=== PATIENT | male | born 1970 | race Caucasian/White ===

== ENCOUNTER 2022-07-06 03:55 | Observation (INO) ==
[2022-07-06] MEDS ORDERED: ONDANSETRON INJ 2 MG/ML 2 ML VIAL IV STA (03:59)
[2022-07-06] MEDS ORDERED: KETOROLAC TROMETHAMINE 15 MG/ML VIAL IV STA (03:59)
[2022-07-06] MEDS ORDERED: SODIUM CHLORIDE 0.9% 1000ML 1,000 ML IV SCH ×2 (04:00→10:02)
[2022-07-06 04:42] LABS: Hematocrit (blood only) 45.6 % (42.0-52.0); Hemoglobin 15.8 g/dl (14.0-18.0); Mean Corpuscular Hgb Conc 34.6 g/dL (32.0-36.0); Mean Corpuscular Volume 92.3 fL (80.0-100.0); Mean Platelet Volume 10.2 fL (9.4-12.4); Platelet Count 278 K/uL (130-400); RDW Coefficient of Variation 12.1 % (11.5-14.5); RDW Standard Deviation 40.9 fL (36.4-46.3); Red Blood Count 4.94 M/uL (4.70-6.10); White Blood Count 9.35 K/ul (4.8-10.8)
[2022-07-06 05:08] LABS: Albumin Globulin Ratio 1.7 (0.9-2); Albumin Level 4.3 gm/dl (3.4-5.0); BUN Creatinine Ratio 13.8 (10-20); Bilirubin,Total 0.6 mg/dl (0.2-1.0); Calcium 10.4 mg/dl (8.6-10.3); Creatinine Clr Calc Pharmacy 60.5 ml/min; Est GFR (African American) 60.2 ml/min; Est GFR (Non-African American) 51.9 ml/min; Globulin 2.5 gm/dl (2.5-4.0); Potassium 3.9 mmol/L (3.5-5.1); Total Protein 6.8 gm/dl (6.0-8.3)
--- NOTE | 2022-07-06 05:27 | CT Scan Report ---
Exam(s): CT ABDOMEN + PELVIS Without Contrast EXAM: CT Abdomen and Pelvis Without Intravenous Contrast CLINICAL HISTORY: Flank pain. TECHNIQUE: Axial computed tomography images of the abdomen and pelvis without intravenous contrast. CTDI is 17.7 mGy and DLP is 944.43 mGy-cm. Automated exposure control was utilized for the study. A dose lowering technique was utilized adhering to the principles of ALARA. COMPARISON: No relevant prior studies available. FINDINGS: Lung bases: Unremarkable. No mass. No consolidation. ABDOMEN: Liver: Unremarkable. Gallbladder and bile ducts: Unremarkable. No calcified stones. No ductal dilation. Pancreas: Unremarkable. No ductal dilation. Spleen: Unremarkable. No splenomegaly. Adrenals: Unremarkable. No mass. Kidneys and ureters: There is moderate to severe right hydroureteronephrosis. There are approximately 4 obstructing calculi in the distal right ureter with a 4 mm stone in the right UVJ. The largest distal right ureteral calculus measures 5-6 mm. The left kidney is atrophic. Stomach and bowel: Unremarkable. No obstruction. No mucosal thickening. Diverticulosis without diverticulitis. PELVIS: Appendix: No findings to suggest acute appendicitis. Bladder: Unremarkable. No stones. Reproductive: Unremarkable as visualized. ABDOMEN and PELVIS: Intraperitoneal space: Unremarkable. No free air. No significant fluid collection. Bones/joints: No acute fracture. No dislocation. Soft tissues: Unremarkable. Vasculature: Unremarkable. No abdominal aortic aneurysm. Lymph nodes: Unremarkable. No enlarged lymph nodes. IMPRESSION: There is moderate to severe right hydroureteronephrosis. There are approximately 4 obstructing calculi in the distal right ureter with a 4 mm stone in the right UVJ. The largest distal right ureteral calculus measures 5-6 mm. Electronically signed by: Ronal Sandoval MD 07/06/22 05:26 AM
[2022-07-06 05:33] LABS: ALC (manual) 4.49 K/uL (1.2-3.4); ANC (manual) 4.11 K/uL (1.4-6.5); Eosinophils # (manual) 0.28 K/uL (0-0.50); Eosinophils % (manual) 3 %; Large Granular Lymph # (manua 1.59 K/uL; Large Granular Lymph % (manual) 17 %; Lymphocytes % (manual) 31 %; Metamyelocytes # (manual) 0.09 K/uL (0-0); Metamyelocytes % (manual) 1 %; Monocytes # (manual) 0.47 K/uL (0.11-0.59); Monocytes % (manual) 5 %; Neutrophils # (manual) 4.11 K/uL (1.40-6.50); Neutrophils % (manual) 44 %; RBC Morphology Unremarkable
--- NOTE | 2022-07-06 05:45 | Urology Consultation ---
Date of Consultation July 06, 2022 Assessment & Plan (1) Kidney stones: Due to the patient's clinical presentation, findings on imaging, and the fact that he has a left atrophic kidney I discussed with the treating emergency room physician he will be admitted to the hospitalist service. We will proceed as follows: Provide IV fluid for hydration Provide analgesics Provide antiemetics Implement n.p.o. status We will attempt obtain a urine sample and if there is suspicion for infection will treat accordingly The patient does take Flomax as an outpatient we will administer dose of that now to help with expulsive therapy I suspect the patient may require cystoscopy due to his atrophic left kidney and the fact he has multiple obstructing kidney stones in the right. The patient will be evaluate by urology attending this morning and further plans will be delineated based on their assessment of the patient. Additional recommendations were forthcoming based on his clinical course as it unfolds History of Present Illness Reason for Consultation: Nephrolithiasis History of Present Illness This is a 52-year-old male who presented to the emergency department secondary to right-sided flank pain. Patient notes that the pain has been present for approximately 2 days. He notes the pain is located in the right flank with some radiation to his abdomen. He denies any nausea or vomiting. Since his pain began he has been able to urinate without dysuria or hematuria but since arrival to the emergency department he has not been able to urinate. He denies any fevers, shakes, or chills. Patient notes that he has had kidney stones in the past that required treatment most recently in October 2018. At this time the patient underwent ESWL by Dr. Jorge Gallardo. Since arrival to the hospital the patient has had labs and imaging which independent reviewed. Patient had a CT scan of the abdomen pelvis that showed moderate to severe right-sided hydronephrosis with approximately 4 obstructing kidney stones in the distal right ureter and a 4 mm stone at the right ureterovesical junction. The largest of the stones measures approximate 5 to 6 mm. The left kidney was noted to be atrophic Labs include a CBC her white blood cell count, hemoglobin, hematocrit, and platelet count were normal. Chemistry profile showed sodium, potassium, and BUN were normal. His creatinine was elevated at 5.2. Available records show that his most recent creatinine available for review was in October 2018 which was in the normal range at 1.24. Urinalysis has been unable to be obtained at this time. At the time my interview the patient was resting comfortably in bed he was in no distress. Allergies Allergy/AdvReac Type Severity Reaction Status Date / Time Dgpwxfc-NBU-MoG Reductase AdvReac Mild MUSCLE Verified 03/27/19 14:13 Inhibitor CRAMPS [Qjfzegr-Vrl-Deg Reductase Inhibitor] pollen extracts AdvReac Unknown "SEASONAL Verified 03/27/19 14:13 ALLERGIES" Home Medications Medication Instructions Recorded Confirmed Type calcium carbonate 200 mg calcium 400 mg PO AC 09/01/18 03/27/19 History (500 mg) chewable tablet (Tums) lisinopril 20 mg tablet 20 mg PO QAM 09/01/18 03/27/19 History omega 4-dup-bgi-fish oil 1,000 mg 2 cap PO BID 09/01/18 03/27/19 History (120 mg-180 mg) capsule (Fish Oil) sodium di- and 1 tab PO BID 09/01/18 03/27/19 History monophosphate-potassium phos monobasic 250 mg tablet (Phospha Neutral) oxycodone-acetaminophen 7.5 mg-325 1 tab PO Q6H PRN pain #20 tabs 09/09/18 03/27/19 Rx mg tablet (Percocet) potassium citrate 10 mEq (1,080 10 meq PO BID #60 tabs 10/21/18 03/27/19 Rx mg) tablet,extended release (Urocit-K 10) tamsulosin 0.4 mg capsule 0.4 mg PO HS #30 caps 10/21/18 03/27/19 Rx ezetimibe 10 mg tablet 10 mg PO DAILY 11/23/18 03/27/19 History magnesium oxide 400 mg PO BID 11/23/18 03/27/19 History multivitamin (Daily Multi-Vitamin 1 tab PO DAILY 11/23/18 03/27/19 History tablet) pitavastatin calcium 4 mg tablet 4 mg PO DAILY 11/23/18 03/27/19 History (Livalo) sodium di- and 1 tab PO BID 11/23/18 03/27/19 History monophosphate-potassium phos monobasic 250 mg tablet Patient History Medical History Diverticular disease GERD (gastroesophageal reflux disease) VERY RARE Hyperlipidemia Hyperlipidemia Hypertension Hypertension Kidney stones Migraine Prostate cancer screening Surgical History History of colonoscopy History of lithotripsy LASER LITHOTRIPSY X3 ESWL X1 Social History Smoking Status: Never smoker Second Hand Exposure: No; Hx Alcohol Use: Yes Alcohol type: beer, wine and hard liquor Hx Substance Use: No Preferred Language: Togolese Communication Ability: Effective Chipper Required: No Beliefs That Will Affect Care: Roman Catholic Roman Catholic Beliefs: jehovah witness - n o blood products Current Living Situation: Spouse and Family Feels Safe at Home: Yes Assistive Devices: Contacts and Glasses Review of Systems Constitutional: no fever and no chills Eyes: no eye pain Ear, Nose, Mouth, Throat: no ear pain Respiratory: no cough and no dyspnea Cardiovascular: no chest pain Gastrointestinal: + abdominal pain (Radiating from right flank); no nausea and no vomiting Genitourinary: + flank pain (Right sided); no dysuria Musculoskeletal: + back pain (Right flank) Integumentary: no rash Neurologic: no localized weakness Physical Exam Constitutional: WD/WN, vitals as above Eyes: Wears glasses ENMT: Ears: no hearing impairment and no external ear abnormality Mouth: no oropharynx abnormality Neck: trachea midline Respiratory: normal respiratory effort; no respiratory distress and no labored breathing Cardiovascular: Rate/Rhythm: regular rate and regular rhythm Gastrointestinal (Abdomen): Soft, nonrigid, nondistended, nontender to palpation Musculoskeletal: No calf tenderness Skin: no rashes Neurologic: moves all extremities Psychiatric: A+Ox3, euthymic affect Genitourinary: no CVA tenderness Results & Data Vital Signs (Past 12 Hours) Vital Signs Temp Pulse Pulse Resp BP BP Pulse Ox 07/06/22 04:52 60 18 150/91 H 98 07/06/22 03:57 36.5 C 72 16 162/97 H 99 O2 Del Method 07/06/22 04:52 Room Air 07/06/22 03:57 Room Air PG Care Time/CCT Total # of Minutes Spent Total Time Spent with Patient: Total time spent is greater than 50% in coordination of care (as documented) at patient's floor/unit and/or counseling patient: Coding Level of Care Code 82772 IN/OBS CONSULT LVL 5,80M Diagnoses Kidney stones N20.0
--- NOTE | 2022-07-06 05:51 | History & Physical Report ---
Date of Service July 06, 2022 Assessment & Plan (1) Kidney stones: Plan: 52yo male with history of CKD - single functioning kidney - presenting with right flank pain. Found with several obstructing renal calculi and hydronephrosis. Mild elevation of Cr to 1.52 from baseline of appx 1.2 Urinalysis not yet obtained -Admit to medical -Strain all urine -IVF with NSS at 100mL/hr -Flomax 0.4mg po daily -Morphine as needed for pain control -Zofran as needed for nausea -Empiric Ceftriaxone 2gm IV daily until UA results returned -Urology consultation appreciated -Patient is a Jehova's Witness - no whole blood or blood products (2) Hyperlipidemia: Plan: Chronic -Hold Livalo for now (3) Hypertension: Plan: Chronic. Mildly elevated BP in setting of acute pain -Pain control -Hold Lisinopril -Monitor BP (4) Chronic kidney disease, stage 2 (mild): Plan: Mild elevation of Cr from baseline - 1.52 from 1.2. Patient reports he has a single functioning kidney as his other was damaged by renal stones as a child. -Monitor BUN, Cr, electrolytes and UOP -Avoid nephrotoxic agents -Renal dosing where needed F/E/N -NSS at 100ml/hr, monitor electrolytes and replete as needed, NPO for now Ppx - Low risk for DVT Code - Full Dispo - Admission to medical History of Present Illness Chief Complaint: right flank pain Primary Care Provider: Henrique Camarillo Hunetr Hammer is a 52yo male with history of HTN, HLP and prior renal stones presenting with right flank pain that began yesterday morning. Also with some nausea. CT with moderate to severe right hydroureteronephrosis with approximately 4 obstructing calculi in the distal right ureter with a 4mm stone in the right UVJ. The largest distal right ureteral calculus measures 5-6mm. Patient with solitary functioning kidney. He reports that his other kidney was severely damaged by renal stones in childhood. Pain presently controlled with use of IV Toradol. In the ER he is afebrile, hypertensive otherwise HD stable. ER COurse: Zofran, Toradol, NSS Allergies Allergy/AdvReac Type Severity Reaction Status Date / Time Gkyroay-EGA-HmG Reductase AdvReac Mild MUSCLE Verified 03/27/19 14:13 Inhibitor CRAMPS [Tmobsgh-Yjd-Obx Reductase Inhibitor] pollen extracts AdvReac Unknown "SEASONAL Verified 03/27/19 14:13 ALLERGIES" Home Medications Medication Instructions Recorded Confirmed Type calcium carbonate 200 mg calcium 400 mg PO AC 09/01/18 03/27/19 History (500 mg) chewable tablet (Tums) lisinopril 20 mg tablet 20 mg PO QAM 09/01/18 03/27/19 History omega 7-kql-ymj-fish oil 1,000 mg 2 cap PO BID 09/01/18 03/27/19 History (120 mg-180 mg) capsule (Fish Oil) sodium di- and 1 tab PO BID 09/01/18 03/27/19 History monophosphate-potassium phos monobasic 250 mg tablet (Phospha Neutral) oxycodone-acetaminophen 7.5 mg-325 1 tab PO Q6H PRN pain #20 tabs 09/09/18 03/27/19 Rx mg tablet (Percocet) potassium citrate 10 mEq (1,080 10 meq PO BID #60 tabs 10/21/18 03/27/19 Rx mg) tablet,extended release (Urocit-K 10) tamsulosin 0.4 mg capsule 0.4 mg PO HS #30 caps 10/21/18 03/27/19 Rx ezetimibe 10 mg tablet 10 mg PO DAILY 11/23/18 03/27/19 History magnesium oxide 400 mg PO BID 11/23/18 03/27/19 History multivitamin (Daily Multi-Vitamin 1 tab PO DAILY 11/23/18 03/27/19 History tablet) pitavastatin calcium 4 mg tablet 4 mg PO DAILY 11/23/18 03/27/19 History (Livalo) sodium di- and 1 tab PO BID 11/23/18 03/27/19 History monophosphate-potassium phos monobasic 250 mg tablet Past Med/Surg History Medical History (Updated 07/06/22 @ 06:16 by Rosey David DO) Diverticular disease GERD (gastroesophageal reflux disease) VERY RARE Hyperlipidemia Hypertension Kidney stones Migraine Surgical History History of colonoscopy History of lithotripsy LASER LITHOTRIPSY X3 ESWL X1 Social History Smoking Status: Never smoker Second Hand Exposure: No; Hx Alcohol Use: Yes Alcohol type: beer, wine and hard liquor Hx Substance Use: No Preferred Language: Fijian Communication Ability: Effective Associate Professor Of Anthropology Required: No Beliefs That Will Affect Care: Christian Christian Beliefs: jehovah witness - no blood products Current Living Situation: Spouse and Family Feels Safe at Home: Yes Assistive Devices: Contacts and Glasses Review of Systems Review of Systems: All systems reviewed & are unremarkable except as noted in HPI & below Physical Exam Physical Exam: General: patient resting comfortably, NAD, non-toxic in appearance, AA&O x 4 Skin: warm, dry, intact, no rashes or lesions HEENT: NC/AT, PERRL, EOMI, anicteric sclera, conjunctiva without injection, external ear normal to inspection and nontender, nares patent, moist mucus membranes, dentition intact, no oropharyngeal lesions, neck supple, trachea midline, no LAD, no thyromegaly, no JVD Heart: +S1/S2, regular, no m/r/g Lungs: equal air entry bilaterally, no rales/rhonchi/wheezes Abd: +BS, soft, NT/ND, no masses/organomegaly/ascites, right flank pain Ext: warm, 2+ pulses in UE/LE bilaterally, no clubbing/cyanosis or edema Neuro: nonfocal, patient AA&O x 4, speech intact, no facial droop, moving all extremities on command with equal strength 5/5 Results & Data Results & Data Vital Signs (Past 12 Hours) Vital Signs Temp Pulse Pulse Resp BP BP Pulse Ox 07/06/22 04:52 60 18 150/91 H 98 07/06/22 03:57 36.5 C 72 16 162/97 H 99 O2 Del Method 07/06/22 04:52 Room Air 07/06/22 03:57 Room Air Laboratory Results Laboratory Results WBC 9.35 K/ul (4.8-10.8) 07/06/22 04:33 RBC 4.94 M/uL (4.70-6.10) 07/06/22 04:33 Hgb 15.8 g/dl (14.0-18.0) 07/06/22 04:33 Hct 45.6 % (42.0-52.0) 07/06/22 04:33 MCV 92.3 fL (80.0-100.0) 07/06/22 04:33 MCH 32.0 pg (25.0-34.0) 07/06/22 04:33 MCHC 34.6 g/dL (32.0-36.0) 07/06/22 04:33 RDW Std Deviation 40.9 fL (36.4-46.3) 07/06/22 04:33 RDW Coeff of Melania 12.1 % (11.5-14.5) 07/06/22 04:33 Plt Count 278 K/uL (130-400) 07/06/22 04:33 MPV 10.2 fL (9.4-12.4) 07/06/22 04:33 Neutrophils % (Manual) 44 % 07/06/22 04:33 Lymphocytes % (Manual) 31 % 07/06/22 04:33 Monocytes % (Manual) 5 % 07/06/22 04:33 Eosinophils % (Manual) 3 % 07/06/22 04:33 Metamyelocytes % (Man) 1 % 07/06/22 04:33 Neutrophils # (Manual) 4.11 K/uL (1.40-6.50) 07/06/22 04:33 Total Absolute Neuts 4.11 K/uL (1.4-6.5) 07/06/22 04:33 Lymphocytes # (Manual) 2.90 K/uL (1.2-3.4) 07/06/22 04:33 Total Abs Lymphocytes 4.49 K/uL (1.2-3.4) H 07/06/22 04:33 Monocytes # (Manual) 0.47 K/uL (0.11-0.59) 07/06/22 04:33 Eosinophils # (Manual) 0.28 K/uL (0-0.50) 07/06/22 04:33 Metamyelocytes # (Man) 0.09 K/uL (0-0) H 07/06/22 04:33 Large Granular Lymphs 17 % 07/06/22 04:33 # Lrg Granular Lymphs 1.59 K/uL 07/06/22 04:33 RBC Morphology Unremarkable 07/06/22 04:33 Sodium 140 mmol/L (136-145) 07/06/22 04:33 Potassium 3.9 mmol/L (3.5-5.1) 07/06/22 04:33 Chloride 105 mmol/L (98-107) 07/06/22 04:33 Carbon Dioxide 28 mmol/L (21-32) 07/06/22 04:33 Anion Gap 7 (3-11) 07/06/22 04:33 BUN 21 mg/dl (6-23) 07/06/22 04:33 Creatinine 1.52 mg/dl (0.6-1.4) H 07/06/22 04:33 Est Cr Clr Drug Dosing 60.5 ml/min 07/06/22 04:33 Est GFR ( Amer) 60.2 ml/min 07/06/22 04:33 Est GFR (Non-Af Amer) 51.9 ml/min 07/06/22 04:33 BUN/Creatinine Ratio 13.8 (10-20) 07/06/22 04:33 Glucose 142 mg/dl (70-99(Fasting)) H 07/06/22 04:33 Calcium 10.4 mg/dl (8.6-10.3) H 07/06/22 04:33 Total Bilirubin 0.6 mg/dl (0.2-1.0) 07/06/22 04:33 AST 18 U/L (13-39) 07/06/22 04:33 ALT 18 U/L (7-52) 07/06/22 04:33 Alkaline Phosphatase 37 U/L (34-104) 07/06/22 04:33 Total Protein 6.8 gm/dl (6.0-8.3) 07/06/22 04:33 Albumin 4.3 gm/dl (3.4-5.0) 07/06/22 04:33 Globulin 2.5 gm/dl (2.5-4.0) 07/06/22 04:33 Albumin/Globulin Ratio 1.7 (0.9-2) 07/06/22 04:33 Lipase 13 U/L (11-82) 07/06/22 04:33 Impressions Abdomen/Pelvis CT 07/06/22 03:59 Exam(s): CT ABDOMEN + PELVIS Without Contrast EXAM: CT Abdomen and Pelvis Without Intravenous Contrast CLINICAL HISTORY: Flank pain. TECHNIQUE: Axial computed tomography images of the abdomen and pelvis without intravenous contrast. CTDI is 17.7 mGy and DLP is 944.43 mGy-cm. Automated exposure control was utilized for the study. A dose lowering technique was utilized adhering to the principles of ALARA. COMPARISON: No relevant prior studies available. FINDINGS: Lung bases: Unremarkable. No mass. No consolidation. ABDOMEN: Liver: Unremarkable. Gallbladder and bile ducts: Unremarkable. No calcified stones. No ductal dilation. Pancreas: Unremarkable. No ductal dilation. Spleen: Unremarkable. No splenomegaly. Adrenals: Unremarkable. No mass. Kidneys and ureters: There is moderate to severe right hydroureteronephrosis. There are approximately 4 obstructing calculi in the distal right ureter with a 4 mm stone in the right UVJ. The largest distal right ureteral calculus measures 5-6 mm. The left kidney is atrophic. Stomach and bowel: Unremarkable. No obstruction. No mucosal thickening. Diverticulosis without diverticulitis. PELVIS: Appendix: No findings to suggest acute appendicitis. Bladder: Unremarkable. No stones. Reproductive: Unremarkable as visualized. ABDOMEN and PELVIS: Intraperitoneal space: Unremarkable. No free air. No significant fluid collection. Bones/joints: No acute fracture. No dislocation. Soft tissues: Unremarkable. Vasculature: Unremarkable. No abdominal aortic aneurysm. Lymph nodes: Unremarkable. No enlarged lymph nodes. IMPRESSION: There is moderate to severe right hydroureteronephrosis. There are approximately 4 obstructing calculi in the distal right ureter with a 4 mm stone in the right UVJ. The largest distal right ureteral calculus measures 5-6 mm. Electronically signed by: Ronal Sandoval MD 07/06/22 05:26 AM PG Care Time/CCT Total # of Minutes Spent Total Time Spent with Patient: Total time spent is greater than 50% in coordination of care (as documented) at patient's floor/unit and/or counseling patient: Coding Level of Care Code 51593 INT INP/OBS CARE 2/55MIN Diagnoses Kidney stones N20.0 Hyperlipidemia E78.5 Hypertension I10 Chronic kidney disease, stage 2 (mild) N18.2
[2022-07-06] MEDS: MoRPHine SULFATE 4 MG/ML 1 ML CARP\\VIAL IV PRN ×2 (06:19→07:47)
--- NOTE | 2022-07-06 09:17 | Urology Progress Note ---
Date of Service July 06, 2022 Assessment & Plan (1) Kidney stones: (2) Right ureteral stone: Plan Even though he has passed some stones, he is still having flank pain raising suspicion for persistent ureteral obstruction with stones. We discussed surgical intervention with cystoscopy, right retrograde pyelogram, possible right ureteroscopy, possible laser lithotripsy, right ureteral stent placement. He expressed understanding and would like to proceed with surgical intervention. Admission and Anticipated Discharge Date Admission Date: July 06, 2022 Subjective Feeling okay this morning, denies fevers or chills Still having some right-sided flank pain Passed some stones when urinating this morning Review of Systems Review of Systems: 12 point review of systems negative except for otherwise indicated. Physical Exam Constitutional: well developed and well nourished; no acute distress Eyes: + anicteric sclerae; pupils not irregular Respiratory: normal respiratory effort; no respiratory distress, does not use accessory muscles and no cough Cardiovascular: well perfused Gastrointestinal (Abdomen): Inspection/Auscultation: abdomen normal to inspection; abdomen not distended Musculoskeletal: Extremities: extremities normal to inspection Skin: normal turgor; no rashes and no lesions Neurologic: moves all extremities and awake Psychiatric: Orientation: alert and oriented x 3 Results & Data Vital Signs (Past 12 Hours) Vital Signs Temp Pulse Pulse Resp BP BP Pulse Ox 07/06/22 08:00 83 18 131/82 100 07/06/22 06:38 66 15 141/86 H 98 07/06/22 04:52 60 18 150/91 H 98 07/06/22 03:57 36.5 C 72 16 162/97 H 99 O2 Del Method 07/06/22 08:00 Room Air 07/06/22 06:38 Room Air 07/06/22 04:52 Room Air 07/06/22 03:57 Room Air PG Care Time/CCT Total # of Minutes Spent Total Time Spent with Patient: Total time spent is greater than 50% in coordination of care (as documented) at patient's floor/unit and/or counseling patient: Coding Level of Care Code None Diagnoses Kidney stones N20.0 Right ureteral stone N20.1
[2022-07-06] MEDS ORDERED: DOCUSATE SODIUM/SENNA 50/8.6MG TAB PO PRN (10:02)
[2022-07-06] MEDS ORDERED: ONDANSETRON INJ 2 MG/ML 2 ML VIAL IV PRN (10:02)
[2022-07-06] MEDS ORDERED: POLYETHYLENE (MIRALAX) 17 GM PACK PO PRN (10:02)
[2022-07-06] MEDS ORDERED: ACETAMINOPHEN 325 MG TAB PO PRN (10:02)
[2022-07-06] MEDS ORDERED: MoRPHine SULFATE 2 MG/ML CARP IV PRN (10:02)
[2022-07-06] MEDS ORDERED: MoRPHine SULFATE 4 MG/ML 1 ML CARP\\VIAL IV PRN (10:02)
[2022-07-06 10:25] LABS: Appearance Urine Clear (Clear); Bacteria Urine Automated Negative (Negative); Bilirubin Urine Negative (Negative); Blood Urine 2+ (Negative); Color Urine Yellow; Glucose Urine UA Negative (Negative); Ketones Urine Negative (Negative); Leukocyte Esterase Urine Negative (Negative); Nitrite Urine Negative (Negative); Protein Urine 1+ (Negative); RBC Urine Automated >30 /hpf (0-4); Specific Gravity Urine 1.011 (1.000-1.030); Urobilinogen Urine Negative (Negative)
--- NOTE | 2022-07-06 10:34 | Anesthesiology Consultation ---
Date of Service July 06, 2022 Assessment & Plan Chart Review Chart Review: Acceptable Risk for Surgery and Patient NOT seen in Pre Admission Testing History Surgery Operation Date: 07/06/22 14:10 Proposed Procedures p Cystoscopy Retrograde Pyelogram Right Stent Placement - Hood Wallace MD Height/Weight Height: 5 ft 11 in Weight: 87.2 kg Allergies Allergy/AdvReac Type Severity Reaction Status Date / Time Oehywvi-RPD-TtA Reductase AdvReac Mild MUSCLE Verified 03/27/19 14:13 Inhibitor CRAMPS [Xqblyah-Owy-Xsi Reductase Inhibitor] pollen extracts AdvReac Unknown "SEASONAL Verified 03/27/19 14:13 ALLERGIES" Medications Home Medications Medication Instructions Recorded Confirmed Last Taken calcium carbonate 200 mg calcium 400 mg PO AC 09/01/18 03/27/19 10/20/18 (500 mg) chewable tablet (Tums) lisinopril 20 mg tablet 20 mg PO QAM 09/01/18 03/27/19 10/20/18 omega 8-wzs-noq-fish oil 1,000 mg 2 cap PO BID 09/01/18 03/27/19 10/10/18 (120 mg-180 mg) capsule (Fish Oil) sodium di- and 1 tab PO BID 09/01/18 03/27/19 10/20/18 monophosphate-potassium phos monobasic 250 mg tablet (Phospha Neutral) oxycodone-acetaminophen 7.5 mg-325 1 tab PO Q6H PRN pain #20 tabs 09/09/18 03/27/19 Unknown mg tablet (Percocet) potassium citrate 10 mEq (1,080 10 meq PO BID #60 tabs 10/21/18 03/27/19 Unknown mg) tablet,extended release (Urocit-K 10) tamsulosin 0.4 mg capsule 0.4 mg PO HS #30 caps 10/21/18 03/27/19 Unknown ezetimibe 10 mg tablet 10 mg PO DAILY 11/23/18 03/27/19 Unknown magnesium oxide 400 mg PO BID 11/23/18 03/27/19 Unknown multivitamin (Daily Multi-Vitamin 1 tab PO DAILY 11/23/18 03/27/19 Unknown tablet) pitavastatin calcium 4 mg tablet 4 mg PO DAILY 11/23/18 03/27/19 Unknown (Livalo) sodium di- and 1 tab PO BID 11/23/18 03/27/19 Unknown monophosphate-potassium phos monobasic 250 mg tablet Active Medications Generic Name Dose Route Start Last Admin Trade Name Eunice PRN Reason Stop Dose Admin Sodium Chloride 1,000 mls @ 100 mls/hr 07/06/22 10:02 07/06/22 10:31 Nss 1000ml IV 07/06/22 20:01 100 mls/hr .Q10H THEODORE Administration Past Medical History Medical History Diverticular disease GERD (gastroesophageal reflux disease) VERY RARE Hyperlipidemia Hypertension Kidney stones Migraine Past Surgical History Surgical History History of colonoscopy History of lithotripsy LASER LITHOTRIPSY X3 ESWL X1 Social History Smoking Status: Never smoker Hx Alcohol Use: Yes Alcohol type: beer, wine and hard liquor alcohol intake frequency: holidays/special occasions only Hx Substance Use: No substance use type: does not use Physical Exam Vital Signs Last Vital Signs Temp 36.5 C 07/06/22 03:57 Pulse 83 07/06/22 08:00 Resp 18 07/06/22 08:00 BP 131/82 07/06/22 08:00 Pulse Ox 100 07/06/22 08:00 O2 Del Method Room Air 07/06/22 08:00 Testing Laboratory Results 07/06/22 04:33 07/06/22 04:33 Urine Color Yellow 07/06/22 09:00 Urine Appearance Clear (Clear) 07/06/22 09:00 Urine pH 6.0 (4.5-7.5) 07/06/22 09:00 Ur Specific [place] 1.011 (1.000-1.030) 07/06/22 09:00 Urine Protein 1+ (Negative) H 07/06/22 09:00 Urine Glucose (UA) Negative (Negative) 07/06/22 09:00 Urine Ketones Negative (Negative) 07/06/22 09:00 Urine Nitrite Negative (Negative) 07/06/22 09:00 Ur Leukocyte Esterase Negative (Negative) 07/06/22 09:00
[2022-07-06 11:19] LABS: Calcium Oxalate Crystals Urine Present (None Prsent)
[2022-07-06] MEDS: TAMSULOSIN HCL 0.4 MG CAP PO SCH (11:53)
[2022-07-06] MEDS: cefTRIAXone SODIUM 2,000 MG in DEXTROSE 5% 50 ML IV SCH (13:17)
--- NOTE | 2022-07-06 13:44 | XRay Report ---
KUB HISTORY: Follow-up Right ureteral stones COMPARISON: Abdomen and pelvis CT 07/06/2022. FINDINGS: The bowel gas pattern is unremarkable. There are no dilated loops of small bowel to suggest an obstruction. The renal shadows are obscured by overlying bowel gas. No definite renal calculi id entified. Mild to moderate fecal retention is noted. Punctate calcification within the right deep pel vis is consistent with a phlebolith. No ureteral calculi identified. Specifically, no definite distal right ureteral stones as seen on the prior study. Therefore, these may have passed in the interval. No pneumoperitoneum or pneumatosis. IMPRESSION: No renal or ureteral calculi identified. ACT 112: Negative or not required by law. Electronically signed by: Og Feldman M.D. 07/06/2022 1:42 PM
--- NOTE | 2022-07-07 05:54 | Emergency Department Note ---
History of Present Illness General Chief complaint: Kidney Stone Stated complaint: KIDNEY STONE Time Seen by Provider: 07/06/22 05:29 History of Present Illness Maximum Pain Intensity: 4 This is a 52-year-old male presenting to the emergency department for evaluation of right flank pain. The patient has a history of kidney stones and this feels similar to previous. His pain is colicky and rated a 4/10. He relates a history of only having a single kidney, and has required intervention for kidney stone removal in the past. He has not taken anything dpiv-mty-[id number] for symptoms. He has been able to make urine. No fevers or chills. Home Medications Medication Instructions Recorded Confirmed Type calcium carbonate 200 mg calcium 400 mg PO AC 09/01/18 07/06/22 History (500 mg) chewable tablet (Tums) lisinopril 20 mg tablet 20 mg PO QAM 09/01/18 07/06/22 History omega 1-fbq-fdl-fish oil 1,000 mg 2 cap PO BID 09/01/18 07/06/22 History (120 mg-180 mg) capsule (Fish Oil) sodium di- and 1 tab PO BID 09/01/18 07/06/22 History monophosphate-potassium phos monobasic 250 mg tablet (Phospha Neutral) potassium citrate 10 mEq (1,080 10 meq PO BID #60 tabs 10/21/18 07/06/22 Rx mg) tablet,extended release (Urocit-K 10) tamsulosin 0.4 mg capsule 0.4 mg PO HS #30 caps 10/21/18 07/06/22 Rx ezetimibe 10 mg tablet 10 mg PO DAILY 11/23/18 07/06/22 History magnesium oxide 400 mg PO BID 11/23/18 07/06/22 History multivitamin (Daily Multi-Vitamin 1 tab PO DAILY 11/23/18 07/06/22 History tablet) pitavastatin calcium 4 mg tablet 4 mg PO DAILY 11/23/18 07/06/22 History (Livalo) sodium di- and 1 tab PO BID 11/23/18 07/06/22 History monophosphate-potassium phos monobasic 250 mg tablet Allergies Allergy/AdvReac Type Severity Reaction Status Date / Time Ndbmgsg-ERB-HkV Reductase AdvReac Mild MUSCLE Verified 03/27/19 14:13 Inhibitor CRAMPS [Vhkyroa-Isg-Rjn Reductase Inhibitor] pollen extracts AdvReac Unknown "SEASONAL Verified 03/27/19 14:13 ALLERGIES" Past Med/Surg History Medical History Diverticular disease GERD (gastroesophageal reflux disease) VERY RARE Hyperlipidemia Hypertension Kidney stones Migraine Surgical History History of colonoscopy History of lithotripsy LASER LITHOTRIPSY X3 ESWL X1 Social History Smoking Status: Never smoker Second Hand Exposure: No; Hx Alcohol Use: Yes Alcohol type: beer, wine and hard liquor Hx Substance Use: No Preferred Language: Romanian Communication Ability: Effective Business Economist Required: No Beliefs That Will Affect Care: Presybeterian Presybeterian Beliefs: no blood Jehova Wittness Current Living Situation: Family Current Living Situation Comment: and children Feels Safe at Home: Yes Assistive Devices: None Review of Systems A total of 10 systems reviewed and were otherwise negative Physical Exam VITALS: Vitals are noted on the nurse's note and reviewed by myself. Vital signs stable. GENERAL: Well-developed, well-nourished, white male, who is in no acute distress and resting comfortably. Patient is cooperative with the examination. HEAD: Normocephalic atraumatic. HEART: Regular rate and rhythm without murmurs gallops or rubs. LUNGS: Clear to auscultation bilaterally without wheezes, rales or rhonchi. No retractions or accessory muscle use. ABDOMEN: Positive normal bowel sounds x 4. Soft, nontender, without masses or organomegaly. No guarding or rebound tenderness. MUSCULOSKELETAL: No muscle atrophy, erythema, or edema noted. Full range of motion in all extremities. Course Administered Medications Ceftriaxone Sodium 2,000 mg/ (Dextrose) 70 mls @ 100 mls/hr IV Q24H THEODORE; Piero col Stop: 07/16/22 10:29 Last Admin: 07/06/22 13:17 Dose: Not Given Documented By: [id number] Tamsulosin HCl (Tamsulosin Hcl 0.4 Mg Cap) 0.4 mg PO QAM THEODORE Stop: 08/05/22 10:29 Last Admin: 07/06/22 11:53 Dose: 0.4 mg Documented By: [id number] Discontinued Medications Sodium Chloride (Nss 1000ml) 1,000 mls @ 999 mls/hr IV .Q1H1M THEODORE Stop: 07/06/22 05:00 Last Infusion: 07/06/22 06:35 Dose: 0 mls/hr Documented By: Admin: 07/06/22 04:30 Dose: 999 mls/hr Documented By: APRIL Sodium Chloride (Nss 1000ml) 1,000 mls @ 100 mls/hr IV .Q10H THEODORE Stop: 07/06/22 20:01 Last Infusion: 07/06/22 21:00 Dose: 0 mls/hr Documented By: Admin: 07/06/22 10:31 Dose: 100 mls/hr Documented By: [id number] Ketorolac Tromethamine (Ketorolac Tromethamine 15 Mg/Ml Vial) 15 mg IV NOW STA Stop: 07/06/22 04:00 Last Admin: 07/06/22 04:30 Dose: 15 mg Documented By: APRIL Morphine Sulfate (Morphine Sulfate 4 Mg/Ml 1 Ml Carp\\Vial) 4 mg IV Q30M PRN PRN Reason: Pain Stop: 07/20/22 05:31 Last Admin: 07/06/22 07:47 Dose: 4 mg Documented By: Admin: 07/06/22 06:19 Dose: 4 mg Documented By: APRIL Ondansetron HCl (Ondansetron Inj 2 Mg/Ml 2 Ml Vial) 4 mg IV NOW STA Stop: 07/06/22 04:00 Last Admin: 07/06/22 04:32 Dose: 4 mg Documented By: APRIL Medical Decision Making Differential Diagnosis Differential diagnosis: Etiologies such as shingles, pyelonephritis/UTI, renal colic, appendicitis, diverticulitis, mesenteric ischemia, torsion, aortic pathology, infections, inflammatory bowel disease, bowel obstruction, PUD, biliary pathology, as well as others were entertained. Laboratory Data 07/06/22 04:33 07/06/22 04:33 Lab Results 07/06/22 07/06/22 Range/Units 04:33 04:33 WBC 9.35 (4.8-10.8) K/ul RBC 4.94 (4.70-6.10) M/uL Hgb 15.8 (14.0-18.0) g/dl Hct 45.6 (42.0-52.0) % MCV 92.3 (80.0-100.0) fL MCH 32.0 (25.0-34.0) pg MCHC 34.6 (32.0-36.0) g/dL RDW Std Deviation 40.9 (36.4-46.3) fL RDW Coeff of Melania 12.1 (11.5-14.5) % Plt Count 278 (130-400) K/uL MPV 10.2 (9.4-12.4) fL Neutrophils % (Manual) 44 % Lymphocytes % (Manual) 31 % Monocytes % (Manual) 5 % Eosinophils % (Manual) 3 % Metamyelocytes % (Man) 1 % Neutrophils # (Manual) 4.11 (1.40-6.50) K/uL Total Absolute Neuts 4.11 (1.4-6.5) K/uL Lymphocytes # (Manual) 2.90 (1.2-3.4) K/uL Total Abs Lymphocytes 4.49 H (1.2-3.4) K/uL Monocytes # (Manual) 0.47 (0.11-0.59) K/uL Eosinophils # (Manual) 0.28 (0-0.50) K/uL Metamyelocytes # (Man) 0.09 H (0-0) K/uL Large Granular Lymphs 17 % # Lrg Granular Lymphs 1.59 K/uL RBC Morphology Unremarkable Sodium 140 (136-145) mmol/L Potassium 3.9 (3.5-5.1) mmol/L Chloride 105 (98-107) mmol/L Carbon Dioxide 28 (21-32) mmol/L Anion Gap 7 (3-11) BUN 21 (6-23) mg/dl Creatinine 1.52 H (0.6-1.4) mg/dl Est Cr Clr Drug Dosing 60.5 ml/min Est GFR ( Amer) 60.2 ml/min Est GFR (Non-Af Amer) 51.9 ml/min BUN/Creatinine Ratio 13.8 (10-20) Glucose 142 H (70-99(Fasting)) mg/dl Calcium 10.4 H (8.6-10.3) mg/dl Total Bilirubin 0.6 (0.2-1.0) mg/dl AST 18 (13-39) U/L ALT 18 (7-52) U/L Alkaline Phosphatase 37 (34-104) U/L Total Protein 6.8 (6.0-8.3) gm/dl Albumin 4.3 (3.4-5.0) gm/dl Globulin 2.5 (2.5-4.0) gm/dl Albumin/Globulin Ratio 1.7 (0.9-2) Lipase 13 (11-82) U/L Imaging Data Radiologist's Impression: Abdomen/Pelvis CT 07/06/22 03:59 Exam(s): CT ABDOMEN + PELVIS Without Contrast EXAM: CT Abdomen and Pelvis Without Intravenous Contrast CLINICAL HISTORY: Flank pain. TECHNIQUE: Axial computed tomography images of the abdomen and pelvis without intravenous contrast. CTDI is 17.7 mGy and DLP is 944.43 mGy-cm. Automated exposure control was utilized for the study. A dose lowering technique was utilized adhering to the principles of ALARA. COMPARISON: No relevant prior studies available. FINDINGS: Lung bases: Unremarkable. No mass. No consolidation. ABDOMEN: Liver: Unremarkable. Gallbladder and bile ducts: Unremarkable. No calcified stones. No ductal dilation. Pancreas: Unremarkable. No ductal dilation. Spleen: Unremarkable. No splenomegaly. Adrenals: Unremarkable. No mass. Kidneys and ureters: There is moderate to severe right hydroureteronephrosis. There are approximately 4 obstructing calculi in the distal right ureter with a 4 mm stone in the right UVJ. The largest distal right ureteral calculus measures 5-6 mm. The left kidney is atrophic. Stomach and bowel: Unremarkable. No obstruction. No mucosal thickening. Diverticulosis without diverticulitis. PELVIS: Appendix: No findings to suggest acute appendicitis. Bladder: Unremarkable. No stones. Reproductive: Unremarkable as visualized. ABDOMEN and PELVIS: Intraperitoneal space: Unremarkable. No free air. No significant fluid collection. Bones/joints: No acute fracture. No dislocation. Soft tissues: Unremarkable. Vasculature: Unremarkable. No abdominal aortic aneurysm. Lymph nodes: Unremarkable. No enlarged lymph nodes. IMPRESSION: There is moderate to severe right hydroureteronephrosis. There are approximately 4 obstructing calculi in the distal right ureter with a 4 mm stone in the right UVJ. The largest distal right ureteral calculus measures 5-6 mm. Electronically signed by: Ronal Sandoval MD 07/06/22 05:26 AM MDM Narrative Physical exam and history were performed. Nursing notes, EMR, and Medication List were personally reviewed. No social concerns were identified as barriers to patients care. Patient appears to have flank pain bringing him to the ER. He access was established and labs were obtained. Patient was hydrated with normal saline. He was medicated as above. He was sent to CT scan for imaging. Patient was seen during a period of very high ER volume and acuity with extended wait times. Nursing protocol order have been performed and some of these are available for my review at the time of patient encounter. Patient's blood work is as above and was reviewed. He does not have a significantly elevated white blood cell count, gross anemia, bandemia, or significant electrolyte imbalance. Transaminases are not diagnostic. Urine is with blood. CT was reviewed by radiology and informally reviewed by myself. CT is concerning as he appears to have multiple right-sided ureteral calculi. He essentially has a single kidney and this does put him at high risk for complication. Case was discussed with the on-call urology team who did evaluate the patient at bedside. The case was also discussed with the hospitalist team. Please see the specialist dictations for further patient course, plan, and disposition. The chart was completed utilizing [employer] Speech Voice Recognition Software. Grammatical errors, random word insertions, pronoun errors, and incomplete sentences are an occasional consequence of this system due to software limitations, ambient noise, and hardware issues. Any formal questions or concerns about the content, text, or information contained within the body of this dictation should be directly addressed to the provider for clarification. . Impression & Plan Right ureteral stone Discharge Plan Visit Data Chief Complaint: Kidney Stone Stated Complaint: KIDNEY STONE ED Provider: Alec Rose ED Midlevel Provider: Gabe Cohen Discharge Problem: Right ureteral stone Patient Disposition: Admitted As Inpatient Discharge Instructions Interventions: ED Discharge Assessment Last Done: 07/06/22 08:29
[2022-07-07] MEDS: TAMSULOSIN HCL 0.4 MG CAP PO SCH (08:08)
--- NOTE | 2022-07-07 08:11 | Urology Progress Note ---
Date of Service July 07, 2022 Assessment & Plan (1) Right ureteral stone: (2) Left renal atrophy: Plan: Follow-up of multiple obstructing right ureteral stones, left atrophic kidney. Patient is afebrile, hemodynamically stable. Surgical intervention planned for yesterday was canceled after he passed multiple stones throughout the day. KUB on 07/06 showed no definite renal or ureteral calculi. Pain has resolved. We discussed that he likely passed his obstructing right ureteral stones. A.m. labs are pending. If creatinine is trending down, then it is reasonable to resume diet and discharge to home. Will arrange outpatient follow-up with urology for ongoing management. Admission and Anticipated Discharge Date Admission Date: July 06, 2022 Subjective Patient seen and examined at bedside this morning. He is awake, alert and resting in bed. No acute issues overnight. Denies right flank pain. He is voiding without difficulty. No nausea or vomiting. No fever or chills. His surgical procedure planned for yesterday after he passed multiple stones throughout the day. KUB on 07/06/2022 showed no renal or ureteral calculi identified. Review of Systems Constitutional: as per Subjective / HPI Gastrointestinal: as per Subjective / HPI Genitourinary: + as per Subjective / HPI Physical Exam Constitutional: well developed and well nourished; no acute distress and not ill appearing Respiratory: normal respiratory effort; no respiratory distress and no labored breathing Gastrointestinal (Abdomen): Inspection/Auscultation: abdomen normal to inspection; abdomen not distended Neurologic: moves all extremities and awake Psychiatric: Orientation: alert and oriented x 3 Results & Data Vital Signs (Past 12 Hours) Vital Signs Temp Pulse Resp BP Pulse Ox O2 Del Method 07/07/22 07:36 36.8 C 66 16 126/84 95 Room Air 07/06/22 22:03 37.1 C 70 16 123/76 93 Room Air PG Care Time/CCT Total # of Minutes Spent Total Time Spent with Patient: Total time spent is greater than 50% in coordination of care (as documented) at patient's floor/unit and/or counseling patient: Coding Level of Care Code 10875 SUB INP/OBS CARE 1/25MIN Diagnoses Right ureteral stone N20.1 Left renal atrophy N26.1
[2022-07-07 08:19] LABS: Calcium 9.3 mg/dl (8.6-10.3); Creatinine Clr Calc Pharmacy 63.9 ml/min; Est GFR (African American) 64.3 ml/min; Est GFR (Non-African American) 55.4 ml/min; Potassium 4.4 mmol/L (3.5-5.1)
[2022-07-07] MEDS: cefTRIAXone SODIUM 2,000 MG in DEXTROSE 5% 50 ML IV SCH (10:20)
--- NOTE | 2022-07-07 10:47 | Discharge Summary ---
Date of Service July 07, 2022 Admission HPI Per Admitting Provider Hunter Hammer is a 52yo male with history of HTN, HLP and prior renal stones presenting with right flank pain that began yesterday morning. Also with some nausea. CT with moderate to severe right hydroureteronephrosis with approximately 4 obstructing calculi in the distal right ureter with a 4mm stone in the right UVJ. The largest distal right ureteral calculus measures 5-6mm. Patient with solitary functioning kidney. He reports that his other kidney was severely damaged by renal stones in childhood. Pain presently controlled with use of IV Toradol. In the ER he is afebrile, hypertensive otherwise HD stable. ER COurse: Zofran, Toradol, NSS Admission Exam Per Admitting Provider General: patient resting comfortably, NAD, non-toxic in appearance, AA&O x 4 Skin: warm, dry, intact, no rashes or lesions HEENT: NC/AT, PERRL, EOMI, anicteric sclera, conjunctiva without injection, external ear normal to inspection and nontender, nares patent, moist mucus membranes, dentition intact, no oropharyngeal lesions, neck supple, trachea midline, no LAD, no thyromegaly, no JVD Heart: +S1/S2, regular, no m/r/g Lungs: equal air entry bilaterally, no rales/rhonchi/wheezes Abd: +BS, soft, NT/ND, no masses/organomegaly/ascites, right flank pain Ext: warm, 2+ pulses in UE/LE bilaterally, no clubbing/cyanosis or edema Neuro: nonfocal, patient AA&O x 4, speech intact, no facial droop, moving all extremities on command with equal strength 5/5 Principal Diagnosis right ureteralstone left renal atrophy Discharge Exam Constitutional WD/WN, vitals as above ENMT external ear and nose normal, oropharynx normal Neck trachea midline, no thyromegaly Respiratory normal respiratory effort, lungs clear to auscultation Cardiovascular RRR, no murmur, no edema Gastrointestinal (Abdomen) normal bowel sounds, soft, nontender, no hepatosplenomegaly Psychiatric A+Ox3, euthymic affect Discharge Data Allergies Allergy/AdvReac Type Severity Reaction Status Date / Time Yhiwsyc-SCL-RvW Reductase AdvReac Mild MUSCLE Verified 03/27/19 14:13 Inhibitor CRAMPS [Vaphrvb-Zte-Eqi Reductase Inhibitor] pollen extracts AdvReac Unknown "SEASONAL Verified 03/27/19 14:13 ALLERGIES" Consultations 07/06/22 05:45 ED Decision to Admit Stat 07/06/22 10:02 Consult Urology Routine Procedures Performed Operation Date: 07/06/22 14:10 <No data on this case meets the specified criteria> Was cancelled secondary to patient passing multiple stones on his own and repeat imaging negative for stones Ordered Studies 07/06/22 03:59 CT abd pelvis wo con Stat IMPRESSION: There is moderate to severe right hydroureteronephrosis. There are approximately 4 obstructing calculi in the distal right ureter with a 4 mm stone in the right UVJ. The largest distal right ureteral calculus measures 5-6 mm. KUB HISTORY: Follow-up Right ureteral stones COMPARISON: Abdomen and pelvis CT 07/06/2022. FINDINGS: The bowel gas pattern is unremarkable. There are no dilated loops of small bowel to suggest an obstruction. The renal shadows are obscured by overlying bowel gas. No definite renal calculi identified. Mild to moderate fecal retention is noted. Punctate calcification within the right deep pelvis is consistent with a phlebolith. No ureteral calculi identified. Specifically, no definite distal right ureteral stones as seen on the prior study. Therefore, these may have passed in the interval. No pneumoperitoneum or pneumatosis. IMPRESSION: No renal or ureteral calculi identified. Hospital Course (1) Kidney stones: 52yo male with history of CKD - single functioning kidney - presenting with right flank pain. Found with several obstructing renal calculi and hydronephrosis. Mild elevation of Cr to 1.52 from baseline of appx 1.2 Urinalysis with Blood and Calcium Oxalate Crystal -Admitted to medical -Strained all urine -IVF with NSS at 100mL/hr -Flomax 0.4mg po daily -Morphine as needed for pain control -Zofran as needed for nausea -Empiric Ceftriaxone 2gm IV daily until UA results returned -Urology consultation appreciated -Patient is a Jehova's Witness - no whole blood or blood products - Refused any further IV antibiotics after first dose (2) Hyperlipidemia: Chronic -Can resume Livalo (3) Hypertension: Chronic. Mildly elevated BP in setting of acute pain -Pain control -Can resume Lisinopril -Monitor BP (4) Chronic kidney disease, stage 2 (mild): Mild elevation of Cr from baseline - 1.52 from 1.2. Patient reports he has a single functioning kidney as his other was damaged by renal stones as a child. -Monitor BUN, Cr, electrolytes and UOP - Reviewed BMP this AM Cr improved to 1.44 -Avoid nephrotoxic agents -Renal dosing where needed Plan D/C to home today and follow up with PCP and urology Total Time Total Time Spent Total Time Spent (In Minutes): 35 Discharge Plan Discharge Items Patient Disposition: Home - Self-Care Reason For Visit: RENAL STONE Discharge Diagnosis: renal stones Condition on Discharge: Good Activity: Resume your previous activity Lifting: Gradually increase as tolerated Weightbearing: Full weightbearing Non-emergency contact: Primary Care Provider and Urologist Call non-emergency contact if: you have any medication questions, your symptoms worsen, your pain is concerning for you and you have a fever Follow-up/Referrals: Giovanny Espino DO [Physician] - 07/13/22 10:00 am (Please arrive 15 minutes prior to your appoinment for check in) Henrique Camarillo [Primary Care Provider] - 07/15/22 10:40 am (Will see SAE Canas) Diet: Heart Healthy Addtl Attending Provider Instructions: You were admitted with complaints of right flank pain and nausea and imaging reveled severe right hydroureteronephrosis with approximately 4 obstructing calculi in the distal right ureter with a 4mm stone in the right UVJ. The l argest distal right ureteral calculus measures 5-6mm. You were evaluated by urology and were initially set up for surgical intervention with urology but this was cancelled ater you passed multiple stones and repeat x ray iaging revealed no evidence of any further stones. Your pain resolved, and you kidney functions improved. Urology plans to follow up with you on an outpatient basis. Pending Studies at Discharge: No Stand-Alone Forms: My [facility] [employer] Medications and DC Order Prescriptions: Continued Livalo 4 mg tablet 4 mg PO DAILY multivitamin [Daily Multi-Vitamin] tablet 1 tab PO DAILY sod phos di, mono-K phos mono 250 mg tablet 1 tab PO BID ezetimibe 10 mg tablet 10 mg PO DAILY lisinopril 20 mg Tablet 20 mg PO QAM calcium carbonate [Tums] 200 mg calcium (500 mg) Tablet,Chewable 400 mg PO AC Phospha 250 Neutral 250 mg Tablet 1 tab PO BID omega 9-uzm-kmc-fish oil [Fish Oil] 1,000 mg (120 mg-180 mg) Capsule 2 cap PO BID magnesium oxide 200 mg magnesium tablet 400 mg PO BID potassium citrate [Urocit-K 10] 10 mEq (1,080 mg) tablet extended release 10 meq PO BID Qty: 60 0RF tamsulosin 0.4 mg capsule 0.4 mg PO HS Qty: 30 0RF Discharge Orders: Discharge Order (Routine); Ordered 07/07/22 Ordered By: Rachael Otoole Admission Data Admit Date/Time: 07/06/22 05:50 Attending Provider: David Eduardo Admit Provider: Rosye David Primary Care Provider: Henrique Camarillo Other Providers: Rosey David ; Giovanny Espino. Other Interventions: Discharge Summary Assessment (RN) Last Done: 07/07/22 10:54 Supervising Physician Co-Signing Physician Notes During face to face encounter, I obtained a brief physical examination, discussed hospital stay with patient and discharge instructions with patient. I discussed discharge plan of care with CHLOE Otoole. I reviewed above note and agree with it except for the following: Patient passed multiple stones. Patient will be discharged with possible followup with Urology. Coding Level of Care Code 75039 INP/OBS DISCH >30 MIN Diagnoses Kidney stones N20.0 Hyperlipidemia E78.5 Hypertension I10 Chronic kidney disease, stage 2 (mild) N18.2 Time Spent (min) 35
[2022-07-11 12:00] LABS: Component 2 DNR; Source KIDNEY STONE
== END 2022-07-07 11:42 | disposition home or self-care (01) ==
LOC: ED 03:55 → SUATTDRO 05:50 → EDINP 05:50 → INTOOBSV 05:50 → 3N 08:29